=== PATIENT | male | born 1955 | race Two or more races ===

== ENCOUNTER 2024-02-16 14:55 | Outpatient (RCR) | payer OTHER, MEDICAID, SELFPAY ==
--- NOTE | 2024-02-16 15:36 | PTNOTE_ITS ---
PT OP Initial Eval Patient Information Outpatient Physical Therapy Treatment Date: 02/16/24 Visit Reasons: PAIN IN LEFT SHOULDER Medical Diagnosis: Left Shoulder Pain Treatment Dx #1: Left Shoulder Pain Treatment Dx #2: Left Shoulder Mobility Deficits Start of Care: 02/16/24 Date of Onset: 2 months ago Smoking Status Smoking Status: Never smoker Initial Assessment Subjective: Pt is a 69 y/o male reports of left shoulder pain and weakness s/p fall from a ladder ~ 2 months ago. Pt's xray negative no MRI has been done. Pt has pain (6/10) with all activities. Pt has limitation with overhead motions, lifting, chores, self care, cooking, cleaning, and performing yardwork. Objective: Left Shoulder PROM: all motions are WNL with pain in all planes Left Shoulder AROM Flexion: 90 deg Abduction: 45 deg ER and IR: unable Left Shoulder MMTs: grossly 3-/5 Left Scapula MMTs: grossly 3-/5 Special Test (+) drop arm test Palpation: TTP supraspinatus tendon Assessment: Pt demonstrate left shoulder pain with mobility deficits consistent with rotator cuff tear leading to difficulty with ADLs. Pt will benefit from a shoulder MRI to help rule in/out rotator cuff tear prior to attempting safe physical therapy. Pt was evaluated and d/c from care; thank you for your referrals. Short Term and Vulnerability Researcher Goals 1) Eval and D/C 2) Follow up with MD 3) Recommend shoulder MRI Treatment Plan Frequency and Duration: 1x Certification Dates: 02/16/24 to 05/16/24 Procedure Charges OP PT Eval Mod Complex 30 minutes: Yes
== END 2024-03-15 23:59 | disposition home or self-care (01) ==
LOC: CPTX 14:55
PROVIDERS: PCP Physician Assistant Medical; Referring Provider Physician Assistant Medical; Visit Provider Physician Assistant Medical
DX: M25.512 Pain in left shoulder (principal); R53.1 Weakness
CPT/HCPCS: 97162

== ENCOUNTER → 2024-06-17 | Outpatient (CLI) | payer MEDICARE, MEDICAID, SELFPAY ==
--- NOTE | 2024-06-17 12:00 | XR_ITS ---
MRI shoulder, left, without contrast. Date and time: June 25, 2024 1017 hours INDICATIONS: Onset left shoulder pain beginning 8 months ago Technique: Multiple axial, sagittal and coronal sections of the shoulder have been obtained. Siemens high-resolution 1.5 Sadie MRI scanner is utilized. Axial fat-suppressed sections, TR 2350, TE 18 T2-weighted coronal fat-saturated images, TR 3500, TE 7100 T1-weighted coronal images, TR 500, TE 15 T2-weighted sagittal fat-saturated images, TR 3500, TE 57 T1-weighted sagittal sections, TR 504, TE 13. Findings: Large, 4 cm, full-thickness rotator cuff tear Subscapularis insertion is intact. Subscapularis bursa is not seen. Long head of the biceps is in the bicipital groove. No definite tear of the biceps superior labral anchor is seen. Retraction of the musculotendinous junction of the rotator cuff is evident. Tendinosis pattern is moderate. Distance between the acromium and humeral head is 3 mm Atrophy of the supraspinatus muscle is severe. Atrophy of the infraspinatus muscle is severe. Sagittal sections demonstrate a horizontal acromion. Acromioclavicular joint demonstrates moderate osteoarthritis. Osacromiale is not identified. Moderate osteoarthritis glenohumeral joint Anterior and posterior small labral tears. Bony glenoid fossa on the sagittal sections does not demonstrate osseous defect. Occult fracture or area of avascular necrosis is not seen. Acromioclavicular joint separation is not visible. Defect in the posterolateral margin of the humeral head is not seen Impression: Large, 4 cm, full-thickness rotator cuff tear Anterior superior labral tears
== END | disposition home or self-care (01) ==
PROVIDERS: PCP Physician Assistant Medical; Referring Provider Physician Assistant Medical; Visit Provider Physician Assistant Medical
DX: M75.102 Unspecified rotator cuff tear or rupture of left shoulder, not specified as traumatic (principal); S43.432A Superior glenoid labrum lesion of left shoulder, initial encounter; X58.XXXA Exposure to other specified factors, initial encounter
CPT/HCPCS: 73221